=== PATIENT | male | born 1980 | race Two or more races ===

== ENCOUNTER 2022-08-15 16:25 | Emergency (ER) | payer OTHER ==
[~2022-08-15] VITALS: Ht 167.6 cm; Wt 104.5 kg
[2022-08-15] MEDS ORDERED: ESCI-8 PO (16:29)
[2022-08-15] MEDS ORDERED: BUSP5TAB20 PO (16:29)
[2022-08-15] MEDS ORDERED: BUSP15 PO (16:29)
[2022-08-15] MEDS ORDERED: OMEP10 PO (16:29)
[2022-08-15] MEDS ORDERED: SUMA25TA9 PO (16:29)
[2022-08-15 19:03] VITALS: BP 125/73
== END 2022-08-15 21:11 | disposition home or self-care (01) ==
LOC: EMS 16:25
DX: H61.23 Impacted cerumen, bilateral (principal); F32.A Depression, unspecified; G43.909 Migraine, unspecified, not intractable, without status migrainosus; Z91.013 Allergy to seafood
CPT/HCPCS: 99282; Z7502